=== PATIENT | female | born 1950 | race Caucasian/White ===

== ENCOUNTER 2017-06-10 11:52 | Emergency (ER) | payer OTHER ==
[~2017-06-10] VITALS: Ht 165.1 cm; Wt 68.0 kg
[~2017-06-10 11:52] MED LIST: CIPROFLOXACIN500 M1 PO; FLEXERIL PO; HCTZ; HYDROCODON-ACE1 EAC7; HYDROCODONE-AP1 EAC6 PO; IBUPROFEN 800800 M1 PO; NOHOMEMEDICATIONS; NORCO 5-325 TA1 EACH PO; ZOFRAN ODT4 MG DISSOLVE
[2017-06-10] MEDS ORDERED: COZAAR 25 MG TA25 M1 PO (12:11)
[2017-06-10] MEDS ORDERED: LOPRESSOR25 PO (12:11)
[2017-06-10] MEDS ORDERED: ZANAFLEX2 MG PO (12:12)
[2017-06-10] MEDS ORDERED: ZOLOFT50 MG PO (12:12)
[2017-06-10] MEDS ORDERED: ASPIRIN81 M2 PO (12:12)
[2017-06-10] MEDS ORDERED: ZOCOR20 MG PO (12:12)
[2017-06-10] MEDS ORDERED: CEFDINIR300 MG PO (12:13)
[2017-06-10] MEDS ORDERED: SYMBICORT160 MCG/4. INH (12:13)
[2017-06-10 12:56] LABS: URINE BLOOD NEGATIVE (Negative); URINE CLARITY CLEAR; URINE COLOR YELLOW; URINE GLUCOSE-RANDOM NEGATIVE (Negative); URINE KETONES TRACE (Negative); URINE LEUKOCYTES-REFLEX NEGATIVE (Negative); URINE NITRITE-REFLEX NEGATIVE (Negative); URINE PROTEIN TRACE (Negative); URINE UROBILINOGEN 0.2 E.U./dl (0.2-1.0)
[2017-06-10 12:57] LABS: ICTOTEST (BILI CONFIRMATORY) Negative (Negative); URINE BILIRUBIN 1+ (Negative)
[2017-06-10 13:33] LABS: HEMATOCRIT 38.5 % (37.0-47.0); HEMOGLOBIN 12.8 gm/dL (12.0-15.0); MCH 29.8 pg (26.0-34.0); MCHC 33.4 g/dL (28.0-37.0); MCV 89.2 fL (80.0-100.0); MPV 7.8 fl. (7.2-11.1); NUCLEATED RBCS 0 /100WBC; PLATELET COUNT* 326 thou/uL (150-400); RBC 4.31 mil/uL (4.20-5.00); RDW-CV 13.5 % (10.5-14.5); WBC 11.1 thou/uL (4.0-11.0)
[2017-06-10 13:42] LABS: ANION GAP 10 mmol/L (7-16); BUN 8 mg/dL (7-18); CALCIUM 8.9 mg/dL (8.5-10.1); CHLORIDE 106 mmol/L (98-107); CO2 28 mmol/L (21-32); CREATININE 0.7 mg/dL (0.6-1.3); GLUCOSE 100 mg/dL (70-99); POTASSIUM 3.1 mmol/L (3.5-5.1); SODIUM 144 mmol/L (136-145)
[2017-06-10 13:48] LABS: ABSOLUTE LYMPHOCYTES 1.9 thou/uL (0.8-5.3); ABSOLUTE MONOCYTES 0.4 thou/uL (0.0-1.2); ABSOLUTE NEUTROPHILS 8.8 thou/uL (1.6-8.1); PLATELET ESTIMATE ADEQUATE
[2017-06-10 13:49] LABS: ALBUMIN 3.3 g/dL (3.4-5.0); ALKALINE PHOSPHATASE 80 U/L (46-116); LIPASE 108 U/L (73-393); SGOT 20 U/L (15-37); SGPT 29 U/L (30-65); TOTAL BILIRUBIN 0.4 mg/dL (<0.1-1.0); TOTAL PROTEIN 7.3 g/dL (6.4-8.2); TROPONIN-I LEVEL <0.06 ng/mL (<0.06)
[2017-06-10] MEDS ORDERED: ALBUTEROL2.5 MG/31 INH (15:01)
[2017-06-10] MEDS ORDERED: DOXYCYCLINE 10100 M1 PO (15:01)
[2017-06-10] MEDS ORDERED: ZOFRAN ODT4 MG PO (15:01)
--- NOTE | 2017-06-10 15:02 | EKG ---
[place] [address] ELECTROCARDIOGRAM REPORT Name: CONSTANTINKAYLABETTY Maile Room: [facility]#: [id number] Admission: 06/10/17 Attend Phys: Discharge: Date of : 50 Report #: [id number] THIS REPORT FOR: //name// [facility] ED Test Date: 2017-06-10 Test Time: 14:04:35 Pat Name: BETTY KILLIAN Department: Room: Gender: F Career Guidance Counselor: Waylon SANCHEZ : 1950 Requested By: Calli Huertas Order Number: [id number] MD: Alex Ness Measurements Intervals [place] Rate: 56 P: 22 [place]: 146 QRS: 14 QRSD: 105 T: 31 QT: 487 QTc: 471 Interpretive Statements Sinus bradycardia No previous ECG available for comparison Electronically Signed On 06-10-2017 15:02:06 MARKING MACHINE OPERATOR by Alex Ness [email or web address] <ELECTRONICALLY SIGNED> By: Alex Ness MD, [facility] 06/10/17 1502 1404 1404 Alex Ness MD, FACC /EPI
[2017-06-10] MEDS ORDERED: PREDNISONE 20 M20 M1 PO (15:19)
[2017-06-10 15:21] VITALS: BP 140/77
== END 2017-06-10 15:22 | disposition home or self-care (01) ==
LOC: M.ERS 11:52
PROVIDERS: Nurse Practitioner Family
DX: J18.9 Pneumonia, unspecified organism (principal); E87.6 Hypokalemia; R11.0 Nausea; I10 Essential (primary) hypertension; Z98.890 Other specified postprocedural states

== ENCOUNTER 2017-08-31 10:07 | Inpatient (IN) | payer OTHER ==
[~2017-08-31] VITALS: Ht 165.1 cm; Wt 72.6 kg
[~2017-08-31 10:07] MED LIST changes: +ALBUTEROL2.5 MG/31 INH; +ASPIRIN81 M2 PO; +CEFDINIR300 MG PO; +COZAAR 25 MG TA25 M1 PO; +DOXYCYCLINE 10100 M1 PO; +LOPRESSOR25 PO; +PREDNISONE 20 M20 M1 PO; +SYMBICORT160 MCG/4. INH; +ZANAFLEX2 MG PO; +ZOCOR20 MG PO; +ZOFRAN ODT4 MG PO; +ZOLOFT50 MG PO
[2017-08-31 10:15] VITALS: BP 154/91
[2017-08-31 10:53] LABS: ABSOLUTE BASOPHILS 0.1 thou/uL (0.0-0.2); ABSOLUTE EOSINOPHILS 0.1 thou/uL (0.0-0.7); ABSOLUTE LYMPHOCYTES 1.9 thou/uL (0.8-5.3); ABSOLUTE MONOCYTES 0.8 thou/uL (0.0-1.2); BASOPHILS 0.8 %; EOSINOPHILS 0.6 %; HEMATOCRIT 38.6 % (37.0-47.0); HEMOGLOBIN 13.2 gm/dL (12.0-15.0); LYMPHOCYTES 17.4 %; MCH 30.4 pg (26.0-34.0); MCHC 34.1 g/dL (28.0-37.0); MONOCYTES 7.6 %; MPV 8.5 fl. (7.2-11.1); NUCLEATED RBCS 0 /100WBC; PLATELET COUNT* 192 thou/uL (150-400); POLYS 73.6 %; RBC 4.33 mil/uL (4.20-5.00); RDW-CV 13.8 % (10.5-14.5); WBC 10.9 thou/uL (4.0-11.0)
[2017-08-31 11:02] LABS: ANION GAP 6 mmol/L (7-16); BUN 5 mg/dL (7-18); CHLORIDE 105 mmol/L (98-107); CO2 29 mmol/L (21-32); CREATININE 0.7 mg/dL (0.6-1.3); GLUCOSE 98 mg/dL (70-99); POTASSIUM 3.9 mmol/L (3.5-5.1); SODIUM 140 mmol/L (136-145)
[2017-08-31 11:18] LABS: ALBUMIN 3.6 g/dL (3.4-5.0); ALKALINE PHOSPHATASE 85 U/L (46-116); LIPASE 174 U/L (73-393); NT-PRO BRAIN NAT PEPTIDE 558 pg/mL (<300); SGOT 27 U/L (15-37); SGPT 29 U/L (30-65); TOTAL BILIRUBIN 0.6 mg/dL (<0.1-1.0); TOTAL PROTEIN 7.2 g/dL (6.4-8.2); TROPONIN-I LEVEL <0.06 ng/mL (<0.06)
[2017-08-31 12:32] VITALS: BP 152/72
[2017-08-31 13:15] VITALS: BP 146/77
[2017-08-31 13:53] LABS: URINE BILIRUBIN NEGATIVE (Negative); URINE BLOOD NEGATIVE (Negative); URINE CLARITY CLEAR; URINE COLOR YELLOW; URINE GLUCOSE-RANDOM NEGATIVE (Negative); URINE KETONES NEGATIVE (Negative); URINE LEUKOCYTES-REFLEX NEGATIVE (Negative); URINE NITRITE-REFLEX NEGATIVE (Negative); URINE PROTEIN NEGATIVE (Negative); URINE SPECIFIC GRAVITY 1.015 (1.005-1.030); URINE UROBILINOGEN 0.2 E.U./dl (0.2-1.0)
[2017-08-31 16:00] VITALS: BP 105/55
--- NOTE | 2017-08-31 16:13 | EKG ---
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 08/31/17 7113 1016 1016 Michael Butler MD, [facility] /EPI
--- NOTE | 2017-08-31 18:40 | NUR ---
PT ADMITTED FROM ED WITH COPD EXACERBATION AND BRONCHITIS. PT HAS HAD WORSENING SOA FOR ABOUT 5 DAYS. PT RESPIRATIONS SLIGHTLY LABORED AT REST, LUNGS CLEAR AND DIM IN BASES. PT REPORTS OCCASIONAL CONGESTED COUGH. O2 SAT 89-90 RA. APPLIED 2L O2 NC, SAT UPPER 90S. PT ABLE TO MAKE NEEDS KNOWN, CALL LIGHT IN REACH
[2017-08-31 22:53] VITALS: BP 114/51
[2017-09-01] MEDS ORDERED: FLECAINIDE ACET50 M2 PO (00:59)
[2017-09-01 04:19] LABS: HEMATOCRIT 37.5 % (37.0-47.0); HEMOGLOBIN 12.3 gm/dL (12.0-15.0); MCH 29.6 pg (26.0-34.0); MCHC 32.7 g/dL (28.0-37.0); MCV 90.5 fL (80.0-100.0); MPV 8.9 fl. (7.2-11.1); NUCLEATED RBCS 0 /100WBC; PLATELET COUNT* 184 thou/uL (150-400); RBC 4.15 mil/uL (4.20-5.00); RDW-CV 13.7 % (10.5-14.5); WBC 8.2 thou/uL (4.0-11.0)
[2017-09-01 04:27] LABS: CALCIUM 8.6 mg/dL (8.5-10.1); CREATININE 0.9 mg/dL (0.6-1.3); POTASSIUM 3.6 mmol/L (3.5-5.1)
[2017-09-01 05:39] LABS: ABSOLUTE LYMPHOCYTES 0.4 thou/uL (0.8-5.3); ABSOLUTE NEUTROPHILS 7.8 thou/uL (1.6-8.1); ANISOCYTOSIS 1+; PLATELET ESTIMATE ADEQUATE; POIKILOCYTOSIS 1+
--- NOTE | 2017-09-01 05:53 | NUR ---
PT SLEPT ON AND OFF OVERNIGHT. UP INDEP TO BR TO VOID. O22L. LFA SL. AM LABS DRAWN. CONGESTED COUGH. RT TX, SOLUMEDROL GIVEN ORDERED. ABLE TO USE CALL LITE AND MAKE NEEDS KNOWN.
[2017-09-01 08:00] VITALS: BP 134/59
[2017-09-01] MEDS ORDERED: FLECAINIDE ACET50 M1 PO (12:26)
[2017-09-01 16:55] VITALS: BP 120/63
--- NOTE | 2017-09-01 16:59 | NUR ---
SW met with pt to complete initial assessment and pt boyfriend, pt dtr, and pt granddaughter in the room as well. Pt lives at home with the above as well as son in law and grandson. SW discussed with pt the possible need for oxygen at home and pt expressed hopefulness that pt will not need oxygen but possibly a nebulizer. SW to continue to follow to assist with safe dc planning.
--- NOTE | 2017-09-01 18:05 | NUR ---
PATIENT REMAINED ALERT AND ORIENTED X'S 4. VITAL SIGNS AND SPO2 STABLE. IV CLEAN, FLUIDS INFUSING. PATIENT BREATHING WELL, RT TOOK HER OFF 02. UP AD MARILEE. PAIN WELL CONTROLLED WITH PAIN MEDS. TOLERATED DIET, NO NAUSEA AND VOMITING. COMPLETED HOURLY ROUNDING. CALL LIGHT WITHIN REACH. WILL CONTINUE TO MONITOR.
[2017-09-01 21:20] VITALS: BP 102/55
[2017-09-02 04:34] LABS: ABSOLUTE LYMPHOCYTES 0.8 thou/uL (0.8-5.3); ABSOLUTE MONOCYTES 0.2 thou/uL (0.0-1.2); ABSOLUTE NEUTROPHILS 12.1 thou/uL (1.6-8.1); BASOPHILS 0.1 %; HEMATOCRIT 34.7 % (37.0-47.0); HEMOGLOBIN 11.3 gm/dL (12.0-15.0); LYMPHOCYTES 6.4 %; MCH 29.5 pg (26.0-34.0); MCHC 32.7 g/dL (28.0-37.0); MCV 90.3 fL (80.0-100.0); MONOCYTES 1.8 %; MPV 9.1 fl. (7.2-11.1); NUCLEATED RBCS 0 /100WBC; PLATELET COUNT* 184 thou/uL (150-400); POLYS 91.7 %; RBC 3.84 mil/uL (4.20-5.00); RDW-CV 14.1 % (10.5-14.5); WBC 13.2 thou/uL (4.0-11.0)
[2017-09-02 04:41] LABS: CALCIUM 8.7 mg/dL (8.5-10.1); CREATININE 0.9 mg/dL (0.6-1.3)
--- NOTE | 2017-09-02 07:27 | NUR ---
PT SLEPT ON AND OFF THIS SHIFT. ASSESSMENT DOCUMNETED. MEDS GIVEN PER E-JUL. IV PATENT, FLUIDS FINISHED INFUSING. PAIN AND ANXIETY MEDS GIVEN PER E-JUL. PT DAUGHTER ASKING ABOUT PT RESTARTED HEART PALPITATION MEDICATION. WILL CONTINUE WITH PLAN OF CARE.
[2017-09-02 08:00] VITALS: BP 120/74
--- NOTE | 2017-09-02 15:12 | NUR ---
P.T. ORDERS RECEIVED. CHART REVIEWED. NSG NOTES INDICATE PT UP AD MARILEE. SPOKE TO NSG AND PT WHO INDICATE SAME. PT HAS NO CONCERNS RE MOBILITY. ACUTE P.T. INTERVENTION NOT INDICATED.
[2017-09-02 15:20] VITALS: BP 137/68
--- NOTE | 2017-09-02 17:50 | NUR ---
PT UP IN ROOM WITH STEADY GAIT. PT ON RA. TOLERATING PO WELL. REPORTS CHRONIC PAIN CONTROLLED WITH PO MEDS
[2017-09-02 20:00] VITALS: BP 134/63
--- NOTE | 2017-09-03 06:05 | NUR ---
Alert and oriented x 4. Lungs have fine crackles in lower lobes bilat. She does have a cough but she states it's improving. Roomair sat 94%. She is up independently in the room voiding adequately. She's had hydrocodone for back pain x 2 this shift. Vitals are stable. She has slept well.
[2017-09-03 07:45] VITALS: BP 134/67
[2017-09-03] MEDS ORDERED: DUONEB 2.5-0.5 M3 ML INH (10:17)
[2017-09-03] MEDS ORDERED: PREDNISONE 10 M10 MG PO (10:19)
[2017-09-03] MEDS ORDERED: VANTIN PO (10:20)
[2017-09-03] MEDS ORDERED: PROTONIX40 M2 PO (10:21)
[2017-09-03 10:23] VITALS: BP 134/67
--- NOTE | 2017-09-03 10:30 | NUR ---
Pt to dc home with family today. SW ordered and sent referral and spoke with Marian from [facility] regarding nebulizer. [phone]. Nebulizer to be delivered to pt home. No needs for HH services. Pt family to provide pt ride home.
--- NOTE | 2017-09-03 11:25 | NUR ---
PATIENT DISCHARGED TO HOME WITH SON. VERBALIZES UNDERSTANDING OF PAPERWORK AND SCRIPTS. IV DC'D. ALL BELONGINGS SENT WITH PATIENT. PATIENT TAKEN OUT VIA WHEELCHAIR.
== END 2017-09-03 11:26 | disposition home or self-care (01) | DRG 189 ==
LOC: M.ERS 10:07 → M.3W 11:57 → M.TBA-ER 11:57 → M.3W 12:58
PROVIDERS: Emergency Medicine; ADMIT Internal Medicine
DX: J96.21 Acute and chronic respiratory failure with hypoxia (principal); J44.0 Chronic obstructive pulmonary disease with (acute) lower respiratory infection; J44.1 Chronic obstructive pulmonary disease with (acute) exacerbation; J20.9 Acute bronchitis, unspecified; G89.29 Other chronic pain; I10 Essential (primary) hypertension; Z87.891 Personal history of nicotine dependence; Z90.49 Acquired absence of other specified parts of digestive tract; Z79.82 Long term (current) use of aspirin; Z79.899 Other long term (current) drug therapy

== ENCOUNTER 2018-08-11 09:46 | Emergency (ER) | payer OTHER ==
[~2018-08-11] VITALS: Ht 167.6 cm; Wt 70.8 kg
[~2018-08-11 09:46] MED LIST changes: +DUONEB 2.5-0.5 M3 ML INH; +FLECAINIDE ACET50 M1 PO; +FLECAINIDE ACET50 M2 PO; +PREDNISONE 10 M10 MG PO; +PROTONIX40 M2 PO; +VANTIN PO
[2018-08-11 10:32] LABS: URINE BLOOD 3+ (Negative); URINE CLARITY SL CLOUDY; URINE COLOR YELLOW; URINE GLUCOSE-RANDOM NEGATIVE (Negative); URINE KETONES TRACE (Negative); URINE PROTEIN 2+ (Negative); URINE SPECIFIC GRAVITY >= 1.030 (1.005-1.030)
[2018-08-11 10:34] LABS: ICTOTEST (BILI CONFIRMATORY) Negative (Negative); URINE BILIRUBIN 1+ (Negative); URINE LEUKOCYTES-REFLEX 2+ (Negative); URINE NITRITE-REFLEX POSITIVE (Negative)
[2018-08-11 10:37] LABS: ABSOLUTE BASOPHILS 0.1 thou/uL (0.0-0.2); ABSOLUTE LYMPHOCYTES 1.6 thou/uL (0.8-5.3); ABSOLUTE NEUTROPHILS 10.6 thou/uL (1.6-8.1); BASOPHILS 0.5 %; EOSINOPHILS 0.1 %; HEMATOCRIT 41.4 % (37.0-47.0); HEMOGLOBIN 13.8 gm/dL (12.0-15.0); LYMPHOCYTES 11.9 %; MCH 29.4 pg (26.0-34.0); MCHC 33.4 g/dL (28.0-37.0); MCV 88.1 fL (80.0-100.0); MONOCYTES 7.5 %; MPV 8.3 fl. (7.2-11.1); NUCLEATED RBCS 0 /100WBC; PLATELET COUNT* 224 thou/uL (150-400); RDW-CV 13.8 % (10.5-14.5); WBC 13.2 thou/uL (4.0-11.0)
[2018-08-11 10:38] LABS: BACTERIA-REFLEX 1-9 Few /HPF (None Seen); CASTS None Seen /LPF (None Seen); CRYSTALS None Seen /LPF (None Seen); MUCUS 0-3 Light strn/LPF (None Seen); SQUAMOUS 0-3 Few /LPF (0-3); URINE RBC 3-10 Few /HPF (0-2); URINE WBC-REFLEX >25 Many /HPF (0-5)
[2018-08-11 10:56] LABS: ALBUMIN 3.9 g/dL (3.4-5.0); ALKALINE PHOSPHATASE 89 U/L (46-116); ANION GAP 14 mmol/L (7-16); BUN 8 mg/dL (7-18); CALCIUM 9.3 mg/dL (8.5-10.1); CHLORIDE 105 mmol/L (98-107); CO2 25 mmol/L (21-32); CREATININE 0.8 mg/dL (0.6-1.3); GLUCOSE 116 mg/dL (70-99); LIPASE 76 U/L (73-393); POTASSIUM 3.6 mmol/L (3.5-5.1); SGOT 21 U/L (15-37); SGPT 24 U/L (30-65); SODIUM 144 mmol/L (136-145); TOTAL PROTEIN 7.9 g/dL (6.4-8.2); TROPONIN-I LEVEL <0.06 ng/mL (<0.06)
[2018-08-11] MEDS ORDERED: ZOFRAN ODT4 MG DISSOLVE (11:40)
[2018-08-11] MEDS ORDERED: MACROBID 100 M100 MG PO (11:40)
[2018-08-11 12:31] VITALS: BP 163/79
--- NOTE | 2018-08-11 16:33 | EKG ---
[place] [address] ELECTROCARDIOGRAM REPORT Name: BETTY KILLIAN Room: [facility]#: [id number] Admission: 08/11/18 Attend Phys: Discharge: 08/11/18 Date of : 50 Report #: [id number] THIS REPORT FOR: //name// [facility] ED Test Date: 2018-08-11 Test Time: 10:42:21 Pat Name: BETTY KILLIAN Department: Room: Gender: F Payable Manager: DOROTHY : 1950 Requested By: Teodora Patten Order Number: [id number] MD: Jonathan Hicks Measurements Intervals [place] Rate: 69 P: 65 [place]: 160 QRS: 25 QRSD: 101 T: 59 QT: 408 QTc: 437 Interpretive Statements Sinus rhythm Borderline T wave abnormalities Baseline wander in lead(s) V5 Compared to ECG 08/31/2017 10:16:04 T-wave abnormality now present Short [place] interval no longer present Electronically Signed On 08-11-2018 16:33:18 CDT by Jonathan Hicks [email or web address] <ELECTRONICALLY SIGNED> By: Jonathan Hicks MD, [facility] 08/11/18 1633 1042 1042 Jonathan Hicks MD, [facility] /EPI
== END 2018-08-11 12:30 | disposition home or self-care (01) ==
LOC: M.ERS 09:46
PROVIDERS: Nurse Practitioner Family
DX: N39.0 Urinary tract infection, site not specified (principal); K80.80 Other cholelithiasis without obstruction; R11.2 Nausea with vomiting, unspecified; I10 Essential (primary) hypertension; Z90.49 Acquired absence of other specified parts of digestive tract; J44.9 Chronic obstructive pulmonary disease, unspecified